=== PATIENT | male | born 1975 | race Caucasian/White ===

== ENCOUNTER → 2022-06-06 08:55 | Outpatient (BNVA) | payer OTHER, SELFPAY | PROVIDERS: PCP Internal Medicine; Visit Provider Nurse Practitioner Family | DX: Z13.89 Encounter for screening for other disorder (principal) ==

== ENCOUNTER 2022-07-21 11:53 | Day surgery (SDC) | payer OTHER, SELFPAY ==
[2022-07-16 11:08] VITALS: BMI 41.0
--- NOTE | ~2022-07-21 | FL_ITS ---
EXAMINATION: XR FLUOROSCOPY WITH IMAGES CLINICAL INFORMATION: Right retrograde. COMPARISON: CT abdomen and pelvis 05/20/2022. TECHNIQUE: Fluoroscopy Supervised By: Dr. Joshua Herron. Fluoroscopy Time: 52.5 seconds. Cumulative Dose: 35.22 mGy. Images: 3. FINDINGS: There are 3 digital images obtained over the right kidney revealing proximal right internal ureteral stent in the kidney pelvis. The distal end is not in the [id number]. Multiple radiopaque calculi seen in the lower pole right kidney concordant with previous CT abdomen finding 05/20/2022 FL/FL guidance in OR IMPRESSION: Proximal right internal ureteral stent is in the kidney pelvis. The distal end is not in the [id number]. Fluoroscopy guidance was provided to referring physician during retrograde pyelogram.
[2022-07-21 12:41] VITALS: BP 159/103; PULSE 91; RESP 18; TEMP 36.4; O2SAT 97; BMI 40.7
[2022-07-21] MEDS: Lactated Ringers 1,000 ML 50 ML IVCONT (13:00)
[2022-07-21 13:07] LABS: Glucose, Whole Blood 117 mg/dL (60-115)
--- NOTE | 2022-07-21 14:52 | MHC.SHP ---
Pre-Procedural Eval Section A Date of Service: 07/21/22 The patient is an INPATIENT: No Changes since office visit: No Cold of Flu in the past 2 weeks, No New Medical Problems, No Changes in Medication and No Patient answered all questions The History & Physical has been completed within 30 days and I have reviewed it.: Yes Section B Chief Complaint: Calculus of kidney Allergies: Allergies Allergy/AdvReac Type Severity Reaction Status Date / Time amoxicillin Allergy Hives Verified 06/18/22 16:37 spinach Allergy Hives Verified 06/18/22 16:37 Plan I have reviewed the history and physical and performed a pertinent physical examination on my patient. No changes have occurred unless specified. Time Spent With Patient Time: Total time managing care of this patient today ____ minutes.
--- NOTE | 2022-07-21 14:55 | HO.ANESPROP2 ---
HPI - Anesthesia Eval Consult details Narrative: cysto, retro, laser, stent PMFSH Active Problems Active Problems: All Active Problems (Updated 07/16/22 @ 11:11 by Vicki Edwards RN) Renal calculus, right (Acute) Flank pain (Acute) Past Medical History Medical History (Updated 07/16/22 @ 11:11 by Vicki Edwards, RN) Depression Fatty liver Hypercholesteremia Hypertension Hypothyroid Obesity Type 2 diabetes mellitus Family History Family history of problems with anesthesia: No Surgical History Surgical History (Updated 07/16/22 @ 11:13 by Vicki Edwards RN) History of lithotripsy History of repair of left rotator cuff Social History Social History Are you a primary plant health care technician to a significant other at home: No Do you presently have visiting nurse or other home services: No Patient Tobacco Use Status: Never used Tobacco Use of substances other than those prescribed or required for medical reasons: No Have you been hit, kicked, punched, or otherwise hurt by someone within the past year? If so, by whom?: No Are you DNR?: No Advance Directives: No Advance Directives Information Provided: Yes Advance Directives on File: No Recently lost weight without trying: No Eating poorly because of decreased appetite: No Nutrition Risks: No Nutritional Risk Meds Allergies Allergy/AdvReac Type Severity Reaction Status Date / Time amoxicillin Allergy Hives Verified 06/18/22 16:37 spinach Allergy Hives Verified 06/18/22 16:37 Active Medications: Current Medications Lactated Ringer's (Lr) 1,000 mls @ 50 mls/hr IVCONT .Q20H REAL Last Admin: 07/21/22 13:00 Dose: 50 mls/hr Acetaminophen (Ofirmev) 1,000 mg in 100 mls @ 400 mls/hr IV PREOP ONE Stop: 07/21/22 15:05 Levofloxacin (Levaquin) 500 mg in 100 mls @ 100 mls/hr IV PREOP ONE Stop: 07/21/22 15:50 Home Medications Medication Instructions Recorded Confirmed Last Taken Type amlodipine 2.5 mg tablet 2.5 mg PO DAILY 06/05/22 07/16/22 Unknown History atorvastatin 80 mg tablet 80 mg PO DAILY 06/05/22 07/16/22 Unknown History bupropion HCl 150 mg 24 hr tablet, 150 mg PO QAM 06/05/22 07/16/22 Unknown History extended release citalopram 40 mg tablet 40 mg PO DAILY 06/05/22 07/16/22 Unknown History fenofibrate nanocrystallized 145 145 mg PO DAILY 06/05/22 07/16/22 Unknown History mg tablet insulin degludec 100 unit/mL (3 25 unit subcut DAILY 06/05/22 07/16/22 Unknown History mL) subcutaneous pen (Tresiba FlexTouch U-100 insulin) levothyroxine 50 mcg tablet 50 mcg PO DAILY 06/05/22 07/16/22 Unknown History lisinopril 10 mg tablet 10 mg PO DAILY 06/05/22 07/16/22 Unknown History semaglutide 1 mg/dose (4 mg/3 mL) 1 mg subcut QWEEK 06/05/22 07/16/22 Unknown History subcutaneous pen injector (Ozempic) aspirin 81 mg tablet,delayed 81 mg PO DAILY 06/06/22 07/16/22 Unknown History release (Adult Aspirin Regimen) Exam Exam Date and Time: July 21, 2022 1455 Height,Weight and Vital Signs: Height 5 ft 11 in Weight 132.449 kg Last Vital Signs Temp 97.5 F 07/21/22 12:41 Pulse 91 07/21/22 12:41 Resp 18 07/21/22 12:41 BP 159/103 H 07/21/22 12:41 Pulse Ox 97 07/21/22 12:41 O2 Del Method Room Air 07/21/22 12:41 Pertinent Lab Results Pertinent Lab Results: Laboratory Tests 07/21/22 13:04 POC Glucose 117 H Airway Mallampati Class: I TM Dist: >3cm Neck ROM: Full Heart: ok Lungs: ok Assessment and Plan Assessment Anesthesia Assessment: Anesthesia Plan Discussed and Chart Reviewed Final Anesthetic Review Family History of Problems with Anesthesia: No NPO: Yes ASA Class: III Final Preanesthetic Review: No Changes in Pt Med Stat, Meds/Allgs Chart Reviewed, Consent Obtained/Reviewed and Anes Risks/Benef Reviewed Patient Risk: Intermediate Procedure Risk: Low Anesthetic Plan Anesthetic Plan: GA and Agree w/ Assess. and Plan Disposition: Standard PACU
[2022-07-21 17:59] VITALS: BP 153/98; PULSE 84; RESP 16; TEMP 36.6; O2SAT 94
--- NOTE | 2022-07-21 17:59 | P.OP_ITS ---
Operative Note Operative Note Date of Service: 07/21/22 Narrative: PreOperative Diagnosis: right lower pole 2.5 cm staghorn calculus Post Operative Diagnosis: right lower pole 2.5 cm staghorn calculus Procedure: - cystoscopy, right retrograde - right dilatation of ureteric orifice under fluoroscopy - right ureteroscopy, laser lithotripsy - Modified 22 200% longer than typical 2 hours of lasing - right stent placement Surgeon: Dr Joshua Herron Anesthesia: General Indications for procedure: multiple prior stone procedures including PCNL on the right side. 2.4 cm stone. Persistent blood in the urine. Undergoing flexible ureteroscopy. Understands that this is the 1st part of staged procedures and secondary procedures May or may not be be required. Procedure: After informed consent was verified patient was brought to the operating placed in supine position. Anesthesia was administered per protocol. Patient was placed in modified dorsal lithotomy position and prepped and draped in a sterile fashion. Safety pause time-out and side of surgery confirmed. Antibiotics confirmed. 22 Grenadian cystoscope was inserted per urethra. Bladder was normal in its entirety. Both ureteric orifices were in normal position. The right ureteric orifice was cannulated and a retrograde examination was performed. filling defects seen in right lower pole.. A Sensor guidewire was placed up to the level of the renal pelvis under fluoroscopy. The rigid cystoscope was removed and the inner cannula of ureteric access sheath was used under fluoroscopy to dilate the ureteric orifice. The ureteric access sheath was placed and the inner cannula with access wire removed. The digital flexible ureteral scope was placed. We were using the suction sheath with the disposable 7.5 Grenadian flexible ureteral scope. The stone was encountered in the lower pole. The access to the stone was very difficult and involved talking the ureteral scope to gain access. Using the 270 micron holmium laser we were able to work on this large stone. working around the stone with hammer settings of approximately 10 w energy the stone was dusted into small pieces. The laser fiber emerge from the right side of the ureteral scope and we were only able to work on high off of the stone descending back. At various points we switched between the disposable digital in the [employer]. This allowed us to get deferred access points with the holmium laser fiber. After 2 hours of work the visibility had decayed due to ooze from the inflamed urothelium. A decision was made to stop the procedure. At the completion of the stone procedure a Sensor wire was placed back into the renal pelvis. The rigid cystoscope was backloaded over the wire and advanced into the bladder. A 6 Grenadian by variable cm double-J stent was placed into the renal pelvis and bladder under a combination of fluoroscopy and direct visualization. The bladder was emptied. The patient tolerated the procedure well and was extubated in the operating room, and transferred in stable condition to the recovery area. Pathology: None Drains: as above
[2022-07-21 18:04] VITALS: BP 159/88; PULSE 91; RESP 16; O2SAT 94
[2022-07-21 18:09] VITALS: BP 181/93; PULSE 84; RESP 18; O2SAT 94
[2022-07-21 18:14] VITALS: BP 172/97; PULSE 88; RESP 18; O2SAT 97
[2022-07-21 18:25] VITALS: BP 161/83; PULSE 87; RESP 18; TEMP 36.4; O2SAT 96
== END 2022-07-21 18:39 | disposition home or self-care (01) ==
PROVIDERS: PCP Internal Medicine; Visit Provider Urology
PROC: (CPT 52356; principal; 2022-07-21 14:20)
DX: N20.0 Calculus of kidney (principal); N02.9 Recurrent and persistent hematuria with unspecified morphologic changes; Z87.442 Personal history of urinary calculi; I10 Essential (primary) hypertension; K76.0 Fatty (change of) liver, not elsewhere classified; F32.A Depression, unspecified; E78.00 Pure hypercholesterolemia, unspecified; E03.9 Hypothyroidism, unspecified; E11.9 Type 2 diabetes mellitus without complications; Z79.82 Long term (current) use of aspirin; Z79.899 Other long term (current) drug therapy; Z79.4 Long term (current) use of insulin; Z88.1 Allergy status to other antibiotic agents
CPT/HCPCS: 52356; 82947; C1758; C1769; C2617; J0131; J1956; J3010; Q9967

== ENCOUNTER 2022-08-13 06:55 | Day surgery (SDC) | payer OTHER, SELFPAY ==
[2022-08-08 12:15] VITALS: BMI 40.7
--- NOTE | 2022-08-12 10:38 | HO.ANESPROP2 ---
Documented by User: Kassie Anand NP 08/12/22 10:38 HPI - Anesthesia Eval Consult details Narrative: 47yo M for Right ESWL with stent removal s/p cysto, etc 06/2022 with GA-LMA 5 PMFSH Active Problems Active Problems: All Active Problems (Updated 07/16/22 @ 11:11 by Vicki Edwards, RN) Renal calculus, right (Acute) Flank pain (Acute) Past Medical History Medical History (Updated 07/16/22 @ 11:11 by Vicki Edwards, RN) Depression Fatty liver Hypercholesteremia Hypertension Hypothyroid Obesity Type 2 diabetes mellitus Family History Family history of problems with anesthesia: No Surgical History Surgical History (Updated 07/16/22 @ 11:13 by Vicki Edwards, RN) History of lithotripsy History of repair of left rotator cuff Social History Social History Are you a primary vision care associate to a significant other at home: No Do you presently have visiting nurse or other home services: No Patient Tobacco Use Status: Never used Tobacco Use of substances other than those prescribed or required for medical reasons: No Are you DNR?: No Advance Directives: No Advance Directives Information Provided: Yes Meds Allergies Allergy/AdvReac Type Severity Reaction Status Date / Time amoxicillin Allergy Hives Verified 06/18/22 16:37 spinach Allergy Hives Verified 06/18/22 16:37 Home Medications Medication Instructions Recorded Confirmed Last Taken Type amlodipine 2.5 mg tablet 2.5 mg PO DAILY 06/05/22 07/16/22 Unknown History atorvastatin 80 mg tablet 80 mg PO DAILY 06/05/22 07/16/22 Unknown History bupropion HCl 150 mg 24 hr tablet, 150 mg PO QAM 06/05/22 07/16/22 Unknown History extended release citalopram 40 mg tablet 40 mg PO DAILY 06/05/22 07/16/22 Unknown History fenofibrate nanocrystallized 145 145 mg PO DAILY 06/05/22 07/16/22 Unknown History mg tablet insulin degludec 100 unit/mL (3 25 unit subcut DAILY 06/05/22 07/16/22 Unknown History mL) subcutaneous pen (Tresiba FlexTouch U-100 insulin) levothyroxine 50 mcg tablet 50 mcg PO DAILY 06/05/22 07/16/22 Unknown History lisinopril 10 mg tablet 10 mg PO DAILY 06/05/22 07/16/22 Unknown History semaglutide 1 mg/dose (4 mg/3 mL) 1 mg subcut QWEEK 06/05/22 07/16/22 Unknown History subcutaneous pen injector (Ozempic) aspirin 81 mg tablet,delayed 81 mg PO DAILY 06/06/22 07/16/22 Unknown History release (Adult Aspirin Regimen) Exam Exam Date and Time: August 12, 2022 1038 Height,Weight and Vital Signs: Height 5 ft 11 in Weight 132.5 kg Assessment and Plan Assessment Anesthesia Assessment: Chart Reviewed Final Anesthetic Review Family History of Problems with Anesthesia: No Documented by User: Jaimee Segura MD 08/13/22 09:46 PMFSH Past Medical History Medical History (Updated 07/16/22 @ 11:11 by Vicki Edwards, RN) Depression Fatty liver Hypercholesteremia Hypertension Hypothyroid Obesity Type 2 diabetes mellitus Surgical History Surgical History (Updated 07/16/22 @ 11:13 by Vicki Edwards, RN) History of lithotripsy History of repair of left rotator cuff Social History Social History Are you a primary vision care associate to a significant other at home: No Do you presently have visiting nurse or other home services: No Patient Tobacco Use Status: Never used Tobacco Use of substances other than those prescribed or required for medical reasons: No Are you DNR?: No Advance Directives: No Advance Directives Information Provided: Yes Meds Allergies Allergy/AdvReac Type Severity Reaction Status Date / Time amoxicillin Allergy Hives Verified 06/18/22 16:37 spinach Allergy Hives Verified 06/18/22 16:37 Home Medications Medication Instructions Recorded Confirmed Last Taken Type amlodipine 2.5 mg tablet 2.5 mg PO DAILY 06/05/22 07/16/22 Unknown History atorvastatin 80 mg tablet 80 mg PO DAILY 06/05/22 07/16/22 Unknown History bupropion HCl 150 mg 24 hr tablet, 150 mg PO QAM 06/05/22 07/16/22 Unknown History extended release citalopram 40 mg tablet 40 mg PO DAILY 06/05/22 07/16/22 Unknown History fenofibrate nanocrystallized 145 145 mg PO DAILY 06/05/22 07/16/22 Unknown History mg tablet insulin degludec 100 unit/mL (3 25 unit subcut DAILY 06/05/22 07/16/22 Unknown History mL) subcutaneous pen (Tresiba FlexTouch U-100 insulin) levothyroxine 50 mcg tablet 50 mcg PO DAILY 06/05/22 07/16/22 Unknown History lisinopril 10 mg tablet 10 mg PO DAILY 06/05/22 07/16/22 Unknown History semaglutide 1 mg/dose (4 mg/3 mL) 1 mg subcut QWEEK 06/05/22 07/16/22 Unknown History subcutaneous pen injector (Ozempic) aspirin 81 mg tablet,delayed 81 mg PO DAILY 06/06/22 07/16/22 Unknown History release (Adult Aspirin Regimen) Exam Airway Mallampati Class: II TM Dist: >3cm Neck ROM: Full Heart: rrr Lungs: cta Assessment and Plan Assessment Anesthesia Assessment: Anesthesia Plan Discussed Final Anesthetic Review NPO: Yes Final Preanesthetic Review: No Changes in Pt Med Stat, Meds/Allgs Chart Reviewed, Consent Obtained/Reviewed and Anes Risks/Benef Reviewed Patient Risk: Low Procedure Risk: Low Anesthetic Plan Anesthetic Plan: GA Disposition: Standard PACU
--- NOTE | ~2022-08-13 | XR_ITS ---
EXAMINATION: XR ABDOMEN KUB CLINICAL INDICATION: Right kidney stone COMPARISON: Abdomen CT from 05/20/2022 TECHNIQUE: AP view of the abdomen. XR/XR KUB FINDINGS AND IMPRESSION: Bowel gas pattern is normal. Right ureteral stent in satisfactory position with proximal loop of stent in region of renal pelvis and another loop at level of urinary bladder. Multiple clustered stones are present in the lower pole of the right kidney, and one of the largest stones (or stone fragment) is 0.9 cm. No evidence of ureteral stones. No left renal calculi. Mild levocurvature of the the mildly degenerated lumbar spine.
[2022-08-13 08:10] VITALS: BP 144/92; PULSE 89; RESP 16; TEMP 36.6; O2SAT 97
[2022-08-13 08:18] LABS: Glucose, Whole Blood 232 mg/dL (60-115)
[2022-08-13] MEDS: Lactated Ringers 1,000 ML 999 ML IV (08:22)
[2022-08-13] MEDS: levoFLOXacin 500 MG TABLET PO (08:23)
--- NOTE | 2022-08-13 09:10 | MHC.SHP ---
Pre-Procedural Eval Section A Date of Service: 08/13/22 The patient is an INPATIENT: No Changes since office visit: No Cold of Flu in the past 2 weeks, No New Medical Problems, No Changes in Medication and No Patient answered all questions The History & Physical has been completed within 30 days and I have reviewed it.: Yes Section B Chief Complaint: Calculus of kidney Details of Present Illness: right ESWL Relevant Family History (Specify if Yes): No Relevant Social History: None Present Medications: see Short Stay Collaborative assessment Medical History: Significant History History of Previous Operations: Relevant previous surgery/procedure and date(s) Allergies: Allergies Allergy/AdvReac Type Severity Reaction Status Date / Time amoxicillin Allergy Hives Verified 06/18/22 16:37 spinach Allergy Hives Verified 06/18/22 16:37 Review of Systems Sugical H&P ROS: Negative: Constitution, Cardiovascular, Respiratory, Neurological, Psychiatric, Hem-Onc, Allergic/Immunologic, Gastrointestinal, Genitourinary, Musculoskeletal, Integumentary, Endocrine and Eyes/Ears/Nose/Throat Exam Surgical H&P Exam: Normal: HEENT, Normal: Heart, Normal: Lungs, Normal: Extremities, Normal: Abdomen, Normal: Skin and Normal: Neurological Plan Diagnosis/Plan: Unchanged (right ESWL) I have reviewed the history and physical and performed a pertinent physical examination on my patient. No changes have occurred unless specified. Time Spent With Patient Time: Total time managing care of this patient today ____ minutes.
[2022-08-13] MEDS: Lactated Ringers 1,000 ML 100 ML IVCONT (09:53)
--- NOTE | 2022-08-13 10:48 | W.PM.OPN ---
Operative Note Operative Note Date of Service: 08/13/22 Narrative: PreOperative Diagnosis: Right Renal stones Post Operative Diagnosis: Right Renal stones Procedure: Right ESWL Surgeon: Dr Joshua Herron Anesthesia: mac/sedation Indications for procedure: The patient understands ESWL may be a staged procedure and subsequent intervention may be required based on imaging after ESWL. Quoted stone clearance rates for a solitary procedure are in the 70-80% range based primarily on stone location. They also understand there is a risk of bleeding to the kidney, infection, damage to adjacent organs, and stone migration following the procedure. - Imaging right mild pole stone remnant fragments, indwelling stent Procedure: After informed consent was verified the patient was brought to the operating room and placed in a supine position. Anesthesia was performed per protocol. Safety pause time-out was performed. Imaging was displayed in the room and laterality confirmed. ESWL was performed. The 1st 500 shocks were performed at 60 hertz. These were performed with increasing power. Once maximum power was reached the rate was increased to 180 hertz. A total of 2500 shocks were given. Targeted imaging with ultrasound/fluoroscopy showed stone smudging suggestive of disintegration. The patient tolerated the procedure well and was transferred to the recovery area upon completion. Post procedure imaging will be organized. There was no evidence for flank discoloration.
[2022-08-13 11:10] VITALS: BP 107/66; PULSE 88; RESP 20; TEMP 37.3; O2SAT 95
[2022-08-13 11:25] VITALS: BP 149/65; PULSE 78; RESP 20; O2SAT 96
[2022-08-13] MEDS: Phenazopyridine HCL 100 MG TABLET PO (11:35)
[2022-08-13 11:40] VITALS: BP 148/97; PULSE 82; RESP 18; TEMP 36.9; O2SAT 96
== END 2022-08-13 12:06 | disposition home or self-care (01) ==
PROVIDERS: PCP Internal Medicine; Visit Provider Urology
PROC: (CPT 50590; principal; 2022-08-13 09:00)
DX: N20.0 Calculus of kidney (principal); Z87.442 Personal history of urinary calculi; K76.0 Fatty (change of) liver, not elsewhere classified; I10 Essential (primary) hypertension; E78.5 Hyperlipidemia, unspecified; E03.9 Hypothyroidism, unspecified; F32.A Depression, unspecified; E11.9 Type 2 diabetes mellitus without complications; Z79.4 Long term (current) use of insulin; Z79.82 Long term (current) use of aspirin; Z79.899 Other long term (current) drug therapy; Z88.1 Allergy status to other antibiotic agents
CPT/HCPCS: 50590; 74018; 82947; J0131; J2250

== ENCOUNTER → 2022-09-02 15:21 | Outpatient (BNVA) | payer OTHER, SELFPAY | PROVIDERS: PCP Internal Medicine; Visit Provider Urology ==

== ENCOUNTER 2022-09-08 10:02 | Day surgery (SDC) | payer OTHER, SELFPAY ==
[2022-09-03 20:10] VITALS: BMI 40.4
[2022-09-08] VITALS (7 sets, daily range): BP systolic 146–165; BP diastolic 93–105; PULSE 80–86; RESP 16–18; TEMP 36.2–36.8; O2SAT 90–97
--- NOTE | ~2022-09-08 | FL_ITS ---
EXAMINATION: XR FLUOROSCOPY WITH IMAGES CLINICAL INFORMATION: Right stone. COMPARISON: [facility] July 2022 and fluoroscopy exam June 2022. TECHNIQUE: Fluoroscopy Supervised By: Dr. Joshua Herron. Fluoroscopy Time: 16 seconds Cumulative Dose: 12 mGy-cm Images: 4 FINDINGS: Initial image demonstrates distal end of a right internal ureteral stent. Biliary images demonstrate catheter in the right ureter and wire projecting over the right renal collecting system. Final image demonstrates a right internal ureteral stent projecting over the collecting system. FL/FL guidance in OR IMPRESSION: Fluoroscopy guidance for right ureteral stent exchange.
--- NOTE | 2022-09-08 10:17 | HO.ANESPROP2 ---
HPI - Anesthesia Eval Consult details Narrative: neprolithiasis for cysto, laser right PMFSH Active Problems Active Problems: All Active Problems (Updated 09/03/22 @ 20:10 by Cassandra Andres RN) Renal calculus, right (Acute) Flank pain (Acute) Past Medical History Medical History (Updated 09/03/22 @ 20:10 by Cassandra Andres, RN) Depression Fatty liver Hypercholesteremia Hypertension Hypothyroid Obesity Renal stones Type 2 diabetes mellitus Family History Family history of problems with anesthesia: No Surgical History Surgical History (Updated 09/03/22 @ 20:10 by Cassandra Andres RN) History of cystoscopy History of lithotripsy History of repair of left rotator cuff History of Problems with Anesthesia: No Social History Social History Are you a primary care management specialist to a significant other at home: No Do you presently have visiting nurse or other home services: No Patient Tobacco Use Status: Never used Tobacco Use of substances other than those prescribed or required for medical reasons: No Are you DNR?: No Advance Directives: No Advance Directives Information Provided: Yes Advance Directives on File: No Recently lost weight without trying: No Nutrition Risks: No Nutritional Risk Meds Allergies Allergy/AdvReac Type Severity Reaction Status Date / Time amoxicillin Allergy Hives Verified 09/02/22 15:24 spinach Allergy Hives Verified 09/02/22 15:24 Home Medications Medication Instructions Recorded Confirmed Last Taken Type amlodipine 2.5 mg tablet 2.5 mg PO DAILY 06/05/22 09/03/22 Unknown History bupropion HCl 150 mg 24 hr tablet, 150 mg PO QAM 06/05/22 09/03/22 Unknown History extended release citalopram 40 mg tablet 40 mg PO DAILY 06/05/22 09/03/22 Unknown History fenofibrate nanocrystallized 145 145 mg PO DAILY 06/05/22 09/03/22 Unknown History mg tablet insulin degludec 100 unit/mL (3 25 unit subcut DAILY 06/05/22 09/03/22 Unknown History mL) subcutaneous pen (Tresiba FlexTouch U-100 insulin) levothyroxine 50 mcg tablet 50 mcg PO DAILY 06/05/22 09/03/22 Unknown History lisinopril 10 mg tablet 10 mg PO DAILY 06/05/22 09/03/22 Unknown History semaglutide 1 mg/dose (4 mg/3 mL) 1 mg subcut QWEEK 06/05/22 09/03/22 Unknown History subcutaneous pen injector (Ozempic) aspirin 81 mg tablet,delayed 81 mg PO DAILY 06/06/22 09/03/22 Unknown History release (Adult Aspirin Regimen) Exam Exam Date and Time: September 08, 2022 1017 Height,Weight and Vital Signs: Height 5 ft 11 in Weight 131.542 kg Airway Mallampati Class: II TM Dist: >3cm Neck ROM: Full Loose/Missing/Broken Teeth: No Heart: rr Lungs: cts Assessment and Plan Assessment Anesthesia Assessment: Anesthesia Plan Discussed and Chart Reviewed Final Anesthetic Review Family History of Problems with Anesthesia: No History of Problems with Anesthesia: No NPO: Yes ASA Class: II Final Preanesthetic Review: No Changes in Pt Med Stat, Meds/Allgs Chart Reviewed, Consent Obtained/Reviewed and Anes Risks/Benef Reviewed Patient Risk: Intermediate Procedure Risk: Low Anesthetic Plan Anesthetic Plan: MAC: Disposition: Standard PACU
--- NOTE | 2022-09-08 10:29 | P.CONAN_ITS ---
[facility] Active Problems Active Problems: All Active Problems (Updated 09/03/22 @ 20:10 by Cassandra Andres RN) Renal calculus, right (Acute) Flank pain (Acute) Past Medical History Medical History (Updated 09/03/22 @ 20:10 by Cassandra Andres, RN) Depression Fatty liver Hypercholesteremia Hypertension Hypothyroid Obesity Renal stones Type 2 diabetes mellitus Family History Family history of problems with anesthesia: No Surgical History Surgical History (Updated 09/03/22 @ 20:10 by Cassandra Andres, RN) History of cystoscopy History of lithotripsy History of repair of left rotator cuff History of Problems with Anesthesia: No Social History Social History Are you a primary urgent care nurse practitioner to a significant other at home: No Do you presently have visiting nurse or other home services: No Patient Tobacco Use Status: Never used Tobacco Use of substances other than those prescribed or required for medical reasons: No Are you DNR?: No Advance Directives: No Advance Directives Information Provided: Yes Advance Directives on File: No Recently lost weight without trying: No Nutrition Risks: No Nutritional Risk Meds Allergies Allergy/AdvReac Type Severity Reaction Status Date / Time amoxicillin Allergy Hives Verified 09/02/22 15:24 spinach Allergy Hives Verified 09/02/22 15:24 Active Medications: Current Medications Lactated Ringer's (Lr) 500 mls @ 20 mls/hr IVCONT .Q24H [facility] Home Medications Medication Instructions Recorded Confirmed Last Taken Type amlodipine 2.5 mg tablet 2.5 mg PO DAILY 06/05/22 09/03/22 Unknown History bupropion HCl 150 mg 24 hr tablet, 150 mg PO QAM 06/05/22 09/03/22 Unknown History extended release citalopram 40 mg tablet 40 mg PO DAILY 06/05/22 09/03/22 Unknown History fenofibrate nanocrystallized 145 145 mg PO DAILY 06/05/22 09/03/22 Unknown History mg tablet insulin degludec 100 unit/mL (3 25 unit subcut DAILY 06/05/22 09/03/22 Unknown History mL) subcutaneous pen (Tresiba FlexTouch U-100 insulin) levothyroxine 50 mcg tablet 50 mcg PO DAILY 06/05/22 09/03/22 Unknown History lisinopril 10 mg tablet 10 mg PO DAILY 06/05/22 09/03/22 Unknown History semaglutide 1 mg/dose (4 mg/3 mL) 1 mg subcut QWEEK 06/05/22 09/03/22 Unknown History subcutaneous pen injector (Ozempic) aspirin 81 mg tablet,delayed 81 mg PO DAILY 06/06/22 09/03/22 Unknown History release (Adult Aspirin Regimen) Exam Exam Date and Time: September 08, 2022 1029 Height,Weight and Vital Signs: Height 5 ft 11 in Weight 131.542 kg Assessment and Plan Final Anesthetic Review Family History of Problems with Anesthesia: No History of Problems with Anesthesia: No ASA Class: III
[2022-09-08 10:37] LABS: Glucose, Whole Blood 300 mg/dL (60-115)
[2022-09-08] MEDS: Lactated Ringers 1,000 ML 100 ML IVCONT (10:41)
[2022-09-08] MEDS: Insulin Lispro 100 UNIT/ML 3 ML VIAL 10 UNIT SUBCUT (10:43)
--- NOTE | 2022-09-08 10:48 | PC.NURSE ---
POC was 300. Dr. Good ordered 10 units Humalog SQ. Given at this time.
[2022-09-08 11:44] LABS: Glucose, Whole Blood 255 mg/dL (60-115)
--- NOTE | 2022-09-08 15:06 | P.OP_ITS ---
Operative Note Operative Note Date of Service: 09/08/22 Narrative: PreOperative Diagnosis: right lower pole stones and indwelling stent Post Operative Diagnosis: right lower pole stones with indwelling stent Procedure: - cystoscopy, right retrograde - removal right indwelling stent - right ureteroscopy, laser lithotripsy, stone basketing - Modifier 22 - - 100% longer than typical 90 minutes versus 45 - right stent placement Surgeon: Dr Joshua Herron Anesthesia: General Indications for procedure: originally presented with 2.7 cm right renal pelvis stone. Underwent ureteroscopy followed by [facility]. Is here for stent removal and examination removal of fragment stones. Procedure: After informed consent was verified patient was brought to the operating placed in supine position. Anesthesia was administered per protocol. Patient was placed in modified dorsal lithotomy position and prepped and draped in a sterile fashion. Safety pause time-out and side of surgery confirmed. Antibiotics confirmed. 22 Setswana cystoscope was inserted per urethra. Bladder was normal in its entirety. Both ureteric orifices were in normal position. Stent emerging from right ureteric orifice The right ureteric orifice was cannulated and a retrograde examination was performed. filling defect within right lower pole. A Sensor guidewire was placed up to the level of the renal pelvis under fluoroscopy. the right indwelling stent was removed.The rigid cystoscope was removed and the inner cannula of ureteric access sheath was used under fluoroscopy to dilate the ureteric orifice. The ureteric access sheath was placed and the inner cannula with access wire removed. The digital flexible ureteral scope was placed. Suction catheter in place. Disposable ureteral scope. renal pelvis examined. The lower pole was narrowed. Inside the lower pole with collection of stone fragments. There were numerous fragments. Using the holmium laser with a 262 micron fiber stones were broken into small pieces. Using 0 tip basket for approximately 1 hour fragments were removed. this was 100% longer than typical. At the completion of the stone procedure a Sensor wire was placed back into the renal pelvis. The rigid cystoscope was backloaded over the wire and advanced into the bladder. A 6 Setswana by 30 cm double-J stent was placed into the renal pelvis and bladder under a combination of fluoroscopy and direct visualization. The bladder was emptied. The patient tolerated the procedure well and was extubated in the operating room, and transferred in stable condition to the recovery area. Pathology: stones Drains: stent as above
[2022-09-08] MEDS: Phenazopyridine HCL 100 MG TABLET PO (15:28)
[2022-09-13 22:39] LABS: Stone Source RIGHT RENAL STONE
== END 2022-09-08 16:00 | disposition home or self-care (01) ==
PROVIDERS: PCP Internal Medicine; Visit Provider Urology
PROC: (CPT 52356; principal; 2022-09-08 13:40)
DX: N20.0 Calculus of kidney (principal); Z87.442 Personal history of urinary calculi; Z96.0 Presence of urogenital implants; K76.0 Fatty (change of) liver, not elsewhere classified; I10 Essential (primary) hypertension; E78.00 Pure hypercholesterolemia, unspecified; E03.9 Hypothyroidism, unspecified; F32.A Depression, unspecified; E11.9 Type 2 diabetes mellitus without complications; Z79.4 Long term (current) use of insulin; Z79.82 Long term (current) use of aspirin; Z79.899 Other long term (current) drug therapy; Z88.1 Allergy status to other antibiotic agents
CPT/HCPCS: 52356; 82365; 82947; 88300; C1758; C1769; C2617; J0131; J1956; J3010; Q9967

== ENCOUNTER → 2022-09-16 14:51 | Outpatient (BNVA) | payer OTHER, SELFPAY | PROVIDERS: PCP Internal Medicine; Visit Provider Urology | DX: N20.0 Calculus of kidney (principal) | CPT/HCPCS: 52310 ==